=== PATIENT | male | born 1960 | race Caucasian/White ===

== ENCOUNTER 2017-02-20 02:20 | Emergency (ER) | payer BC ==
--- NOTE | ~2017-02-20 | CT2 ---
[facility] A Service [facility] RADIOLOGY TEXT RESULTS PATIENT: CANDACE MANCUSO LOCATION: SED : 60 UNIT #: [id number] AGE: [address]: Jerod Jewell MD SEX: M ORDER DR: [id number] [place] [id number] [id number] MR#: [id number] Acc #: [id number] NAME: CANDACE MANCUSO. : 1960 SEX: M STUDY DATE/TIME: 02/20/2017 4:11 UNIT: SED ROOM: STUDY DESCRIPTION: CT Abd and Pelv W Cont Attending Physician: Jerod Jewell M.D. Ordering Physician: Jerod Jewell M.D. Primary Care Physician: Romario Solorio M.D. MEDICAL IMAGING REPORT This report is preliminary unless electronic signature is present. EXAM CT abdomen and pelvis with contrast. INDICATIONS Left lower quadrant abdominal pain since yesterday. PROCEDURE Contrast-enhanced CT abdomen and pelvis. This CT exam was performed with one or more of the following radiation dose reduction techniques: automatic exposure control, adjustment of mA and/or kV according to patient size, and iterative reconstruction. COMPARISON None. FINDINGS Abdomen with contrast: Included lung bases clear. Liver enlarged measuring 24.1 cm. Hepatic steatosis. The spleen, adrenal glands, pancreas, gallbladder show no acute abnormality. Bilateral renal cysts. Small nonobstructing calculus lower pole left kidney. Bowel loops nondilated. Focal diverticulitis in the mid descending colon. Pelvis without contrast: No pelvic mass or fluid. No aggressive appearing bone lesion. IMPRESSION 1. Focal acute diverticulitis, mid descending colon. 2. Hepatomegaly with steatosis. Dictated by... Abner De La Paz M.D. [facility] A Service [facility] RADIOLOGY TEXT RESULTS PATIENT: CANDACE MANCUSO LOCATION: SED : 60 UNIT #: [id number] AGE: [address]: Jerod Jewell MD SEX: M ORDER DR: THIS IS AN ELECTRONICALLY VERIFIED REPORT Abner De La Paz M.D. at 02/25/2017 2:57 PM PHYLICIA/renetta TD: 02/20/2017 13:15 JOB #: [id number] MEDICAL IMAGING REPORT Page 1 of 1
[~2017-02-20 02:20] MED LIST: ASPIRIN EC81 M1 PO; GLUCOPHAGE500 MG PO; MULTI-DAY1 TAB PO; PRAVASTATIN SOD10 MG PO; PRINIVIL40 MG PO
[2017-02-20 03:13] LABS: BASOPHIL# 0.1 X10e3 (0-0.3); BASOPHIL% 0.8 % (0-2.5); EOSINOPHIL# 0.2 X10e3 (0-0.7); HEMATOCRIT 41.8 % (38.0-50.0); HEMOGLOBIN 14.2 gm/dL (13.0-16.0); LYMPHOCYTE# 1.6 X10e3 (1.0-3.5); LYMPHOCYTE% 13.5 % (17.0-45.0); MEAN CORPUSCULAR HEMOGLOBIN 29.2 PG (28-34); MEAN PLATELET VOLUME 7.6 FL (6.5-11.5); MONOCYTE% 8.4 % (3.0-12.0); NEUTROPHIL# 9.1 X10e3 (1.5-7.1); NEUTROPHIL% 75.3 % (40-75); PLATELET COUNT 175 X10e3 (140-420); RED BLOOD COUNT 4.86 X10e (3.90-5.60); WHITE BLOOD COUNT 12.1 X10e3 (4.0-10.5)
[2017-02-20 03:14] LABS: DIFF IND NO
[2017-02-20 03:21] LABS: URINE SOURCE CLEAN CATCH
[2017-02-20 03:23] LABS: URINE APPEARANCE CLEAR; URINE BILIRUBIN NEG (NEG); URINE BLOOD NEG (NEG); URINE COLOR YELLOW; URINE GLUCOSE NEG (NORM); URINE KETONE NEG (NEG); URINE LEUKOCYTE ESTERASE NEG (NEG); URINE NITRATE NEG (NEG); URINE PH 5.5 (5-8); URINE PROTEIN NEG (NEG); URINE SPECIFIC GRAVITY <=1.005 (1.003-1.035); URINE UROBILINOGEN 0.2 MG/DL (NORM)
[2017-02-20 03:24] LABS: MICRO INDICATED? NO
[2017-02-20 03:32] LABS: ALBUMIN SERUM 4.3 g/dL (3.5-5.0); BILIRUBIN, DIRECT 0.1 mg/dL (0.0-0.2); BILIRUBIN,INDIRECT 0.6 mg/dL (0.0-0.9); BILIRUBIN,TOTAL 0.7 mg/dL (0.2-2.0); BUN/CREATININE RATIO 21.25; CALCIUM SERUM 9.3 mg/dL (8.4-10.2); CREATININE SERUM 0.8 mg/dL (0.6-1.4); GLOM FILT RATE Estimated 99.9 mL/min (>60); POTASSIUM 4.4 mmol/L (3.5-5.1); PROTEIN TOTAL SERUM 7.7 g/dL (6.0-8.3)
== END 2017-02-20 06:06 | disposition home or self-care (01) ==
LOC: SED 02:20
PROVIDERS: Emergency Medicine
DX: K57.32 Diverticulitis of large intestine without perforation or abscess without bleeding (principal); E78.5 Hyperlipidemia, unspecified; E11.9 Type 2 diabetes mellitus without complications; Z79.899 Other long term (current) drug therapy
CPT/HCPCS: 36415; 74177; 80048; 80076; 81003; 83690; 85025; 96365; 99284; J2543; Q9967